=== PATIENT | female | born 1965 | race Caucasian/White ===

== ENCOUNTER 2017-01-26 15:03 | Outpatient (CLI) | payer OTHER ==
[~2017-01-26] VITALS: Ht 170.2 cm; Wt 70.9 kg
[2017-01-26 15:15] VITALS: BP 110/71; PULSE 90; RESP 18; Ht 170.2 cm; Wt 70.9 kg
[2017-01-26] MEDS ORDERED: LORA1TAB PO (15:21)
[2017-01-26] MEDS ORDERED: MORP15TA92 PO (15:21)
[2017-01-26] MEDS ORDERED: DOCU-159 PO (15:21)
[2017-01-26] MEDS ORDERED: LORA0.5T PO (15:21)
[2017-01-26] MEDS ORDERED: ELBA1TAB PO (15:21)
[2017-01-26] MEDS ORDERED: OMEP40CA6 PO (15:21)
--- NOTE | 2017-01-26 16:25 | PN ---
Date/Time of Note Date/Time of Note DATE: 01/26/17 TIME: 15:56 Outpatient Progress Note Chief Complaint Abdominal pain/partial small bowel obstruction/cancer of the colon/hepatitis C/ cirrhosis/anxiety HPI Abdominal pain/patient has generalized abdominal pain, patient was recently hospitalized, patient still has pain, no nausea or vomiting, moderate pain, constant, no radiation, aggravated with food, no heartburn, Some partial small bowel obstruction/patient has partial small bowel obstruction , patient no nausea and upset stomach no fever chill, able to pass gas, Cancer of the colon/patient has a cancer of the colon, patient had chemo and radiation, patient has a colostomy, and herniated colostomy, and it is huge, Hepatitis C/no nausea vomiting, no pruritus, Cirrhosis/no ascites, no abdominal distention, no hematemesis or melena, Anxiety/patient has severe anxiety, patient very anxious nervous and slightly depressed, Review of Systems const: No Fever, no chills, no Wt. loss, slight fatigue, poor appetite, no diaphoresis. Eyes: No pain, no discharge, no redness, no visual change, no foreign body. ENT: No pain, no bleeding, no congestion, no sore throat, no dysphagia, no discharge or rhinitis. Lymph: No adenopathy, no tender nodes, no lymphedema. Resp: No SOB, no cough, no sputum, no wheezing, no chest pain. CV: No chest pain, no palpitaions, no GARCIA, no PND, no edema. GI: Poor appetite, constant moderate pain, off and on slight nausea, occasional vomiting, no diarrhea, no blood, no constipation patient has colostomy bag on the left side of the abdomen, Patient has a herniation of colostomy, and it is huge,. And discomfort, no bleeding, : No frequency, no urgency, no dysuria, no hematuria, no flank pain, no discharge, no bleeding. Musc: No bone/joint pain, no back pain, no neck pain, no knee pain, no restricted ROM. Skin: No rash, no skin lesions, no erythema, no laceration, no bruising, no pruritus. Neuro: No MARIA, no dizziness, no syncope, no seizure, no focal-weakness. Endo: No polyuria, no polydypsia, no dry-skin, no temp-intolerance. Psych: No hallucinations, [id number] depression depression, and moderately severe anxiety,, secondary to her medical situation, no suicidal ideation. Ext: No edema, no pain, no ulcer, no weakness. Physical Exam Vital Signs Date Time Temp Pulse Resp B/P Pulse Ox O2 Delivery O2 Flow Rate FiO2 01/26/17 15:15 98.8 90 18 110/71 95 Room Air General Appearance: A 52 year-old female] who appears well-developed, well- nourished, in no acute distress. HEENT: Head normocephalic, atraumatic. Pupils equal, round, reactive to light and accommodate. Sclerae are no jaundice. Nasal turbinates pink without erythema or nasal discharge. Mucous membranes pink and moist without lesions. Oropharynx clear without any exudate or discharge. NECK: Supple. Trachea midline, No thyromegaly, No cervical lymphadenopathy, No mass, No carotid bruits, No JVD, Carotid pulses 2+ bilaterally. PULMONARY: Clear to auscultaion bilaterally, No retractions, Chest expansion symmetric bilaterally, no rales, no ronchi, no dulness on percussion. CARDIAC: Normal SI and S2, Regular rate and rythm, no murmur, gallop, or rub. GASTROINTESTINAL: Abdomen is soft, mild generalized tenderness,, Non Rigid, No distention, Positive bowel sounds x4 quadrants, Liver normal. Patient has colostomy, Patient has hernia around the colostomy, any disuse, 10 x 12 cm, and slight discomfort full, no bleeding or discharge, SKIN: Warm, dry, no rash, no bruise, no echmosis. EXTREMITIES: Bilateral lower extremities normal, no edema, no phlabitus, pulse palpable, no contracture. MUSCULOSKELETAL: Spine Normal, Non-tender, Normal range of motion, No swelling, no deformity, no clubbing, or cyanosis, the patient has no edema to bilateral lower extremities, dorsalis pedis pulses palpable bilaterally. NEUROLOGIC: The patient is awake, alert, oriented, responding to yes/no questions appropriately, moving all extremities, cranial nerve intact, normal strenght, normal power, normal coordination, normal gait. Allergies Coded Allergies: No Known Drug Allergies (Verified Allergy, Unknown, 01/26/17) [facility] Cancer of colon/resection of colon, radiation and chemotherapy, hepatitis C, cirrhosis of liver, history of alcohol abuse, history of asthma, Severe anxiety Pain around the colostomy, cholecystectomy, colostomy, lymph node biopsy, rectal surgery, tubal ligation, section, Social Hx No smoking or drinking, Family Hx Impression Abdominal pain Partial small bowel obstruction Cancer of: Hepatitis C's Cirrhosis Severe anxiety Multiple surgery,/ section/cholecystectomy/colostomy/lymph node biopsy/ rectal surgery/tubal ligation Plan 52-year-old female seen for multiple medical problem, patient has multiple complicated disease, patient explained about her condition, and explained the prognosis, Patient has severe anxiety, for multiple medical problems and also for denial of disability, Will start on Ativan 1 mg p.o. at bedtime as needed for anxiety, Patient encouraged to follow with the primary care physician and general surgery for possible reversal of her hernia, and colostomy, Patient severely anxious and depressed because of denial of disability, This lady has serious multiple complicated problem, patient has a cancer, patient has low resistant, patient gets fatigued easily, patient get chemotherapy, patient has radiation therapy, has multiple surgery, and may need multiple surgery in the future, and Patient willing to work, but my feeling is no person in the right might will hire her knowing her condition, patient cannot be employed for gainful work, it is not the patient Assessment/Plan Impression Abdominal pain Partial bowel small bowel obstruction Cancer of the colon Hepatitis C Cirrhosis Anxiety Asthma Panic attack Multiple surgery/ section/cholecystectomy/colostomy/lymph node biopsy/ rectal surgery/tubal ligation Plan This 52-year-old lady admitted to the hospital recently for multiple medical problem, patient still continues to have abdominal pain, has history of small partial bowel obstruction, Patient educated about her condition and prognosis, Patient encouraged to follow with the primary care physician and oncologist, and general surgery, Patient will need surgery in the future, for reversal of colostomy/hernia repair /also for possible adhesions in the belly, and patient education done about that , Patient very anxious and nervous and depressed because of her medical condition and patient was denied for disability, This lady has multiple complex medical problem, and some are terminal, patient willing to work, but patient has constant abdominal pain, and low resistant, Patient may get a repeated infection because of low resistant, and that could be deadly, No body in the right my whose employer would employ this patient knowing she has multiple problem and patient cannot do gainful work I am disappointed in the system, even though patient is willing to work but would not be able to work do gainful work because of comorbidity and mortality and She will not be reliable employee because of her condition and patient should be approved for disability I see no other patients who does not deserve to be on disability but they are on and my heart breaks down When I see this kind of patients who really need disability get denied by court , if the research program manager if the judges has this kind of disability and medical problem then and then they will understand what this lady is going through My all seem pretty close to the patient and I told the patient keep on fighting until the decision is reversed and Justice is done, I may not see her again but I told if I can help her I will be glad to, Ativan 1 mg p.o. daily #30 Medications Home Meds Reported Medications Omeprazole* (Omeprazole*) 40 Mg Capsule.dr, 40 MG PO DAILY, #30 CAP 01/26/17 Morphine Sulfate* (Ms Contin*) 15 Mg Tablet.sa, 15 MG PO DAILY, TAB 01/26/17 Elbasvir/Grazoprevir (Zepatier 50-100 mg Tablet) 1 Each Tablet, 1 EACH PO DAILY , TAB 01/26/17 Docusate Sodium* (Docusate Sodium*) 100 Mg Capsule, 100 MG PO BID for CONSTIPATION, #60 CAP 01/26/17 Lorazepam* (Lorazepam*) 1 Mg Tablet, 1 MG PO HS Y for ANXIETY, #30 TAB 01/26/17 Lorazepam* (Lorazepam*) 0.5 Mg Tablet, 0.5 MG PO BID, TAB 01/26/17 EDWAR PARKER MD Jan 26, 2017 16:10
== END 2017-01-26 17:00 | disposition home or self-care (01) ==
LOC: DCC 15:03
PROVIDERS: ATTEND Internal Medicine
DX: R10.84 Generalized abdominal pain (principal); K56.600 Partial intestinal obstruction, unspecified as to cause; Z85.038 Personal history of other malignant neoplasm of large intestine; B19.20 Unspecified viral hepatitis C without hepatic coma; K74.60 Unspecified cirrhosis of liver; F41.9 Anxiety disorder, unspecified; J45.909 Unspecified asthma, uncomplicated; F41.0 Panic disorder [episodic paroxysmal anxiety]
CPT/HCPCS: G0463